=== PATIENT | female | born 1990 | race Caucasian/White ===

== ENCOUNTER 2024-06-06 23:59 | Inpatient (IN) | payer BC ==
[2024-06-07] MEDS ORDERED: hydrALAZINE 20 MG/ML VIAL SLOW IVP PRN ×3 (00:56→18:19)
[2024-06-07] MEDS ORDERED: Misoprostol 200 MCG TAB PR PRN (02:22)
[2024-06-07] MEDS ORDERED: Tranexamic Acid 1,000 MG/10 ML VIAL IVP PRN (02:22)
[2024-06-07] MEDS ORDERED: Methylergonovine 0.2 MG/ML VIAL IM PRN (02:22)
[2024-06-07] MEDS ORDERED: Promethazine HCl 25 MG/ML VIAL IM PRN ×2 (02:22→05:46)
[2024-06-07] MEDS ORDERED: Diphenoxylate HCl/Atropine Tablet PO PRN (02:22)
[2024-06-07] MEDS ORDERED: Docusate 100 MG CAP PO PRN (02:22)
[2024-06-07] MEDS ORDERED: Carboprost 250 MCG/ML AMP IM PRN (02:22)
[2024-06-07] MEDS ORDERED: Acetaminophen 500 MG TAB PO PRN (02:22)
[2024-06-07] MEDS ORDERED: Ibuprofen 800 MG TAB PO PRN (02:25)
[2024-06-07] MEDS ORDERED: Lidocaine 1% (PF) 30 ML VIAL SC PRN (02:25)
[2024-06-07] MEDS ORDERED: Oxytocin 30 units/NS 500 ML 500 ML IV SCH ×3 (02:30)
[2024-06-07] MEDS ORDERED: Lactated Ringer's 1,000 ML IV SCH (02:30)
[2024-06-07 03:59] LABS: Hematocrit 40.3 % (34.9-44.5); Hemoglobin 14.2 g/dL (12.0-15.5); Mean Corpuscular HGB CONC 35.2 g/dL (32.0-36.0); Mean Corpuscular Hemoglobin 31.2 pg (27.0-33.0); Mean Corpuscular Volume 88.6 fL (81.6-98.3); Mean Platelet Volume 11.8 fL (7.4-10.4); Platelet Count 192 10x3/uL (150-450); RBC Distribution Width 13.4 % (11.5-14.5); Red Blood Cell (RBC) Count 4.55 10x6/uL (3.90-5.03); White Blood Cell (WBC) Count 10.93 10x3/uL (3.5-10.5)
[2024-06-07 04:02] VITALS: BMI 33.6
[2024-06-07 04:43] LABS: HBsAg Index 0.22 S/CO (0-0.99); Hep B Surf Ag - L&D Non-Reactive S/CO (NonReactive)
[2024-06-07 04:44] LABS: Syphilis Antibody Nonreactive (Nonreactive); Syphilis Antibody Index 0.04 S/CO (<1.00 Non-Reactive)
[2024-06-07] MEDS ORDERED: ePHEDrine Sulfate 50 MG/10 ML VIAL SLOW IVP PRN (05:46)
[2024-06-07] MEDS ORDERED: diphenhydrAMINE 50 MG/ML VIAL IVP PRN (05:46)
[2024-06-07] MEDS ORDERED: Ondansetron PF 4 MG/2 ML Vial IVP PRN ×2 (05:46→18:19)
[2024-06-07] MEDS ORDERED: Naloxone HCl 0.4 mg/ml Vial IVP PRN ×2 (05:46)
[2024-06-07] MEDS ORDERED: Lactated Ringer's 500 ML IV PRN (05:46)
[2024-06-07] MEDS ORDERED: Moisturizing Cream (Eucerin) 113 GM JAR TOP PRN (05:46)
[2024-06-07] MEDS ORDERED: Acetaminophen 325 MG TAB PO PRN (05:46)
[2024-06-07] MEDS ORDERED: Communication Order-Pharmacy FS SCH (06:00)
[2024-06-07] MEDS ORDERED: fentaNYL 2 mcg/Ropivacaine 0.2% Epidural 100 ML CADD EPIDURAL SCH (06:00)
[2024-06-07] MEDS ORDERED: Bupivacaine/Epinephrine 0.25% 30 ML VIAL ONE (08:00)
[2024-06-07] MEDS: Ondansetron PF 4 MG/2 ML Vial IVP PRN (14:01)
[2024-06-07 17:52] LABS: Analyzer IN Cardio CS NICU; RapidComm Collect By NUR.SGB
[2024-06-07 17:54] LABS: Analyzer IN Cardio CS NICU; RapidComm Collect By NUR.SGB; pH (Cord, venous) 7.281 (7.250-7.350)
[2024-06-07] MEDS ORDERED: Bisacodyl 10 MG SUPP PR PRN (18:19)
[2024-06-07] MEDS ORDERED: Boostrix 0.5 ML (Tdap) VIAL (>/=7 yrs of age) IM ONE (18:19)
[2024-06-07] MEDS ORDERED: Milk Of Magnesia 30 ML UDCUP PO PRN (18:19)
[2024-06-07] MEDS ORDERED: HYDROcodone/Acetaminophen 5/325 mg Tablet PO PRN (18:19)
[2024-06-07] MEDS ORDERED: diphenhydrAMINE 25 MG CAP PO PRN (18:19)
[2024-06-07] MEDS ORDERED: Preparation H Ointment 28 GM TUBE PR PRN (18:19)
[2024-06-07] MEDS ORDERED: Lanolin Ointment 7 GM TUBE TOP PRN (18:19)
[2024-06-07] MEDS: HYDROcodone/Acetaminophen 5/325 mg Tablet PO PRN (19:58)
[2024-06-07] MEDS: Docusate 100 MG CAP PO SCH (21:19)
[2024-06-07] MEDS: Benzocaine-Menthol 82.5 ML CAN TOP PRN (21:19)
[2024-06-07] MEDS: Ibuprofen 800 MG TAB PO SCH (21:19)
[2024-06-08] MEDS: Ferrous Sulfate 325 MG TAB PO SCH (07:32)
[2024-06-08] MEDS: Prenatal Vitamin 1 TAB PO SCH (08:28)
[2024-06-08] MEDS: Acetaminophen 500 MG TAB PO PRN (08:28)
[2024-06-08 15:51] VITALS: TEMP 97.5
[2024-06-08] MEDS: fentaNYL/Ropivacaine Epidural 100 ML ONE (20:54)
[2024-06-09 07:47] VITALS: BP 107/75
== END 2024-06-09 11:40 | disposition home or self-care (01) | DRG 807 ==
LOC: CSHLD/OP 23:59 → CSHLD 06-07 02:04 → CSHPP 06-07 20:15
PROVIDERS: ADMIT Obstetrics & Gynecology; ATTEND Obstetrics & Gynecology
PROC: 10D07Z6 Extraction of Products of Conception, Vacuum, Via Natural or Artificial Opening (ICD-10-PCS; principal; 2024-06-07)
PROC: 0KQM0ZZ Repair Perineum Muscle, Open Approach (ICD-10-PCS; 2024-06-07)
DX: O48.0 Post-term pregnancy (principal); Z37.0 Single live birth; Z3A.40 40 weeks gestation of pregnancy; O69.81X0 Labor and delivery complicated by cord around neck, without compression, not applicable or unspecified; O75.9 Complication of labor and delivery, unspecified
CPT/HCPCS: 36415; 51702; 82805; 85027; 85461; 86780; 86850; 86900; 86901; 87340; 90384; 96372; 99285; J2405

== ENCOUNTER 2025-02-27 21:38 | Emergency (ER) | payer BC ==
[2025-02-27 22:31] LABS: #Basophils 0.05 10x3/uL (0.0-0.2); #Eosinophils Less than 0.03 10x3/uL (0.0-0.5); #Monocytes 0.28 10x3/uL (0.0-1.1); #Neutrophils 10.79 10x3/uL (1.5-8.4); %Basophils 0.4 % (0.0-2.0); %Eosinophils 0.2 % (0.0-6.0); %Lymphocytes 5.1 % (18.0-47.0); %Monocytes 2.4 % (0.0-10.0); %Neutrophils 91.6 % (40.0-75.0); Hematocrit 44.8 % (34.9-44.5); Hemoglobin 15.8 g/dL (12.0-15.5); Mean Corpuscular Hemoglobin 30.3 pg (27.0-33.0); Mean Corpuscular Volume 86.0 fL (81.6-98.3); Platelet Count 210 10x3/uL (150-450); Red Blood Cell (RBC) Count 5.21 10x6/uL (3.90-5.03); White Blood Cell (WBC) Count 11.77 10x3/uL (3.5-10.5)
[2025-02-27 22:55] LABS: Glucose, Urine (Dipstick) Normal (Negative); Leukocyte Negative (Negative); Protein, Urine (Dipstick) 30 mg/dl (Neg-Trace); Specific Gravity, Urine 1.025 (1.005-1.030)
[2025-02-27 23:00] LABS: ALT (SGPT) 25 U/L (Less than 34); AST (SGOT) 26 U/L (11-34); Albumin 4.6 g/dL (3.1-4.5); Alkaline Phosphatase 69 U/L (40-110); Anion Gap 18 mmol/L (10-20); BUN (Urea Nitrogen) 13 mg/dL (7.0-18.7); Bilirubin, Total 1.5 mg/dL (0.3-1.2); Calc. Creatinine Clearance 0 mL/min (70-130); Calcium 8.8 mg/dL (7.8-10.44); Carbon Dioxide 19 mmol/L (22-29); Chloride 108 mmol/L (98-107); Globulin 3.1 g/dL (2.4-3.5); Glucose 140 mg/dL (70-105); Lipase 22 U/L (8-78); Potassium 4.2 mmol/L (3.5-5.1); Sodium 141 mmol/L (136-145)
[2025-02-27 23:04] LABS: CAUTI Indications for Culture Alt mental st,lethar; RBC/HPF 0-3 HPF (0-3); WBC/HPF 0-3 HPF (0-3)
[2025-02-27 23:05] LABS: Bacteria/HPF 1+ HPF (None Seen); Mucous/LPF 2+ LPF (<2+)
[2025-02-27 23:06] LABS: Urine Culture Reflex No No
[2025-02-27] MEDS ORDERED: Droperidol 5 MG/2 ML VIAL ONE (23:26)
[2025-02-28 01:59] LABS: Pregnancy Test - Urine (BHCG) Negative (Negative); Pregu Control Background? CLEAR/WHITE (CLR/WHITE); Pregu Control Bar Appear? YES (CONTROL BAR)
== END 2025-02-28 01:46 | disposition home or self-care (01) ==
LOC: CSHERS 21:38
DX: A08.11 Acute gastroenteropathy due to Norwalk agent (principal)
CPT/HCPCS: 80053; 81001; 81025; 83690; 85025; 99284; J1790